=== PATIENT | male | born 1970 | race Caucasian/White ===

== ENCOUNTER → 2017-11-17 16:16 | Outpatient (CLI) | payer OTHER, SELFPAY ==
--- NOTE | 2017-11-17 08:20 | LES_PTH ---
PATIENT: BOBY CHANDLER LOC: [facility] U#:[id number] AGE/SX: 55/M ROOM: RE11/17/[address]: Dr. Ashu Napoles MD : 1970 BED: DIS: SPEC #: [id number] RECD: 11/17/17 16:07 STATUS: REBCEA CHAZ #: [id number] ISAK: 11/17/17 08:[address]: Ashu Napoles DEPT: SURGICAL PATHOLOGY RECD BY: Nelson Loza ENTERED: 11/18/17 09:08 SP TYPE: Lesion OTHR DR: Dr. Carlos A Sawyer, DO Dr. Quin Hurst DO Tissues: Skin of scalp, NOS Procedures: Surgery Specimen Level IV HEADER OPERATION: Shave biopsy lesion right posterior occipital area PRE-OP DIAGNOSIS: Neoplasm of uncertain behavior of skin TISSUE SUBMITTED: Skin lesion scalp MICROSCOPIC DIAGNOSIS Skin lesion scalp, shave biopsy: Eccrine poroma. SJ:jeanine 11/27/17 COMMENT The case was sent to [facility] for expert opinion and reviewed by Dr. Alvarez and above diagnosis is rendered. Case has been reviewed in consultation with Dr. Hernandez who concurs with the above diagnosis. IDC:AM MICROSCOPIC DESCRIPTION Slides are reviewed. GROSS DESCRIPTION Received in fixative is one container labeled with the patient's name and designated scalp skin lesion shave biopsy. The specimen consists of a polypoid piece of fernandez-white skin measuring 1.7 x 1 x 1 cm. The specimen is inked, serially sectioned and submitted entirely in one cassette. / KEARA:jeanine 11/18/17 TC:1 CPT: 93833
== END ==
PROVIDERS: Family Provider Family Medicine; PCP Family Medicine; Visit Provider Surgery
DX: D48.5 Neoplasm of uncertain behavior of skin (principal)
CPT/HCPCS: 88305

== ENCOUNTER 2017-12-09 13:06 | Outpatient (RCR) | payer OTHER, SELFPAY | END 2017-12-19 23:59 | LOC: NS 13:06 | PROVIDERS: Family Provider Family Medicine; PCP Family Medicine; Visit Provider Physician Assistant | DX: E66.9 Obesity, unspecified (principal); Z68.44 Body mass index [BMI] 60.0-69.9, adult; Z71.3 Dietary counseling and surveillance | CPT/HCPCS: 97802 ==

== ENCOUNTER 2018-01-19 08:30 | Outpatient (RCR) | payer OTHER, SELFPAY | END 2018-01-19 23:59 | LOC: NS 08:30 | PROVIDERS: Family Provider Family Medicine; PCP Family Medicine; Visit Provider Physician Assistant | DX: E66.9 Obesity, unspecified (principal); Z68.44 Body mass index [BMI] 60.0-69.9, adult; Z71.3 Dietary counseling and surveillance | CPT/HCPCS: 97803 ==

== ENCOUNTER → 2019-06-28 10:26 | Outpatient (CLI) | payer BC, SELFPAY | PROVIDERS: Referring Provider Student in an Organized Health Care Education/Training Program; Visit Provider Student in an Organized Health Care Education/Training Program | DX: I10 Essential (primary) hypertension (principal); R00.0 Tachycardia, unspecified; E66.01 Morbid (severe) obesity due to excess calories; Z68.44 Body mass index [BMI] 60.0-69.9, adult | CPT/HCPCS: J7040; Q9957; A4216 ==

== ENCOUNTER → 2019-07-18 08:44 | Outpatient (CLI) | payer BC, SELFPAY ==
[2019-07-14 13:48] VITALS: BMI 72.5
== END ==
PROVIDERS: Referring Provider Internal Medicine Cardiovascular Disease; Visit Provider Internal Medicine Cardiovascular Disease
DX: R00.0 Tachycardia, unspecified (principal)
CPT/HCPCS: 93225; 93226

== ENCOUNTER 2023-01-06 13:28 | Outpatient (RCR) | payer OTHER, SELFPAY ==
[2023-01-06 13:43] VITALS: BP 135/81; PULSE 111; RESP 22; TEMP 36.1; BMI 69.5
--- NOTE | 2023-01-06 14:59 | HP.PCM_ITS ---
History of Present Illness Date of Service: 01/06/23 Chief Complaint: Severe swelling and edema in the lower extremities History of Wound: This is a morbidly obese 52-year-old male who presents with a longstanding history of swelling and edema in his lower extremities. The patient weighs 485 pounds, with a BMI of 69.5. Bariatric surgery has been recommended in the past, but has been denied twice by his insurance company. He has recently lost approximately 100 pounds due to illness which adversely affected his appetite. The patient has multiple pre-existing medical problems, including a recent diagnosis of diabetes mellitus. He has recently started Ozempic. He has a long history of swelling and edema in his lower extremities. His swelling and edema typically is worse at the end of the day. He sleeps on a flat mattress at night. He is not very active. Activity is limited by osteoart hritis in his left knee, which prevents liberal ambulation. He has been advised to undergo left total knee replacement surgery. As result, the patient sits a great deal of each day. 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 He was hospitalized twice in November due to cellulitis in his right leg. He also had an abscess in his right groin, which was surgically drained. While hospitalized at [facility] in November, he was treated with intravenous antibiotics for lower extremity cellulitis. Shortly after discharge, he was hospitalized at [facility] for treatment of dehydration. He denies a history of thrombophlebitis. Venous duplex examination was performed at [facility] approximately 2 weeks ago, which was negative for thrombophlebitis. Until recently, there were blisters and wounds on the patient's legs, but they have since healed, and are nonexistent at the current time He has recently been treated with an oral course of Keflex. The patient owns Velcro compression garments, but has been unable to wear due to sensitivities which have developed in his lower extremities. [facility] Medical History Chronic venous insufficiency CKD (chronic kidney disease) stage 2, GFR 60-89 ml/min COVID-19 Diabetes mellitus Dysmetabolic syndrome X Elevated liver enzymes Essential hypertension GERD (gastroesophageal reflux disease) Hiatal hernia History of migraine headaches Hyperlipidemia Hypertension Immobility Insulin resistance Left leg swelling Leg edema, left Leg edema, right Morbid (severe) obesity due to excess calories Osteoarthritis of knee Right leg swelling Scalp lesion Sinus tachycardia Home Medications multivitamin 1 tab PO QAM 11/12/17 [History Last Taken Unknown] aspirin 81 mg tablet,delayed release (Adult Low Dose Aspirin) 81 mg PO DAILY #90 tabs 05/01/21 [Rx Last Taken Unknown] omeprazole 20 mg capsule,delayed release 20 mg PO QDAY 05/01/21 [History Last Taken Unknown] amlodipine 5 mg tablet 5 mg PO DAILY #90 tabs 03/17/22 [Rx Last Taken Unknown] diphenhydramine 25 mg-acetaminophen 500 mg tablet (Tylenol PM Extra Strength) 2 tab PO QHS PRN sleep 05/19/22 [History Last Taken Unknown] ibuprofen 200 mg tablet 200 mg PO DAILY PRN pain 05/19/22 [History Last Taken Unknown] lisinopril 5 mg tablet 20 mg PO QDAY 01/06/23 [History Last Taken Unknown] semaglutide 0.25 mg or 0.5 mg (2 mg/3 mL) subcutaneous pen injector (Ozempic) 0.25 mg subcut QWEEK 01/06/23 [History Last Taken Unknown] Allergy/AdvReac Type Severity Reaction Status Date / Time Sulfa (Sulfonamide Allergy Mild Anaphylaxis Verified 01/06/23 14:31 Antibiotics) adhesive tape Allergy Unknown Rash Verified 01/06/23 14:31 Family History Brother Diabetes Asthma Mother CAD (coronary artery disease) Father CVA (cerebral vascular accident) CHF (congestive heart failure) Surgical History History of arthroscopy of both knees History of arthroscopy of left knee History of arthroscopy of right knee History of arthroscopy of shoulder History of repair of left rotator cuff History of total right knee replacement right hip bone graft Status post osteotomy Status post right knee replacement Social History Smoking Status: Never smoker alcohol intake: never substance use type: does not use caffeine: Yes Type: carbonated beverages Number of servings: 10 Vital Signs Vital Signs Vital Signs: 01/06/23 13:43 Temperature 97.0 F L Temperature Source Temporal Pulse Rate 111 H Respiratory Rate 22 H Blood Pressure 135/81 H Blood Pressure Mean 99 Blood Pressure Source Monitor Blood Pressure Position Sitting Blood Pressure Location Left Arm Oxygen Delivery Method Room Air Weight Weight: 485 lb Body Mass Index (BMI) 69.5 Physical Exam Const alert, oriented x3, no apparent distress and well nourished Constitutional Narrative: The patient is morbidly obese. He weighs 485 pounds, and his BMI is 69.5. General Appearance: cooperative, comfortable, well kempt and well developed Orientation / Consciousness: awake, oriented to person, oriented to place and oriented to time Exam Limitations: no limitations HEENT normocephalic and head/scalp atraumatic Head and Scalp: normal to inspection, normocephalic and atraumatic External Ear: external ears normal Eyes PERRL and EOMs intact bilaterally General Eye: normal appearance of both eyes Resp normal respiratory effort, normal air movement, no retractions and no use of accessory muscles Effort and Inspection: able to speak in complete sentences Extremity no calf tenderness General Extremity: Negative for clubbing or cyanosis Skin Wound Narrative: Severe swelling and edema are noted in the patient's lower extremities bilaterally. There are no open wounds or ulcerations. There are no significant skin changes. There is no evidence of infection or cellulitis. Neuro oriented x3, CN's II-XII intact bilaterally, moves all extremities and no focal motor deficits Sensorium / Orientation: awake, alert, oriented to person, oriented to place and oriented to time Psych Appearance: grossly normal and appropriate Attitude: calm Activity / Motor Behavior: appropriate eye contact Speech: normal speech Mood & Affect: euthymic mood Thought Process: normal thought process Thought Content: normal thought content Attention / Concentration: attention grossly intact Debridement Note Debridement Note No debridement was completed: No debridement was completed today (There are no open wounds or ulcerations.) Post-Debridement Measurements and Additional Note: Post-Debridement Measurements/Treatment WC - Nurse 1 - General Ulcer Assessment Start: 01/06/23 13:43 Freq: Status: Active Protocol: LISA.DEQUAN Activity Type Activity Date Activity User E-sign Co-sign Detail Recorded Client Recorded Date Recorded By Document 01/06/23 13:43 MW [id number] 01/06/23 14:05 MW 01/06/23 13:43 WC - Today's Visit Information Type of service Initial Visit Arrival Mode Wheelchair Transfer Assistance None Accompanied by Patient Identification Verified (Name & Yes ) Patient Requires Transmission-Based No Precautions Safety Precautions Fall Prevention Finger Stick Blood Sugar(mg/dl) (if 136 indicated): Blood Sugar Stated by Patient Height and Weight Height 5 ft 10 in Weight 485 lb Weight in Pounds 485.0 lbs Weight Measurement Method Stated by Patient Body Mass Index (BMI) 69.5 BMI Classification Obese BSA - Rosemary 3.04 Vital Signs Temperature (97.8 F-99.1 F) 97.0 F L Temperature Source Temporal Pulse Rate (60-100) 111 H Pulse Location Monitor Respiratory Rate (12-18) 22 H Respiratory rate source Observation Oxygen Delivery Method Room Air Blood Pressure (90/60-120/80) 135/81 H Blood Pressure Mean 99 Source Monitor Position Sitting Blood Pressure Location Left Arm History Since Last Visit- (Skip if this is Patient's initial visit) Left Footwear Regular Shoe Right Footwear Regular Shoe Pain Scale: 0-10 Numeric Is Patient Pain Free? Yes Lower Extremity Assessment/ Foot Assessment/ Toe Nail Assessment Right -Posterior Tibial Palpable No -Posterior Tibial Doppler Multiphasic -Dorsalis Pedis Palpable Yes -Dorsalis Pedis Doppler Multiphasic -Extremity Color Hemosiderin -Hair Growth on Legs No -Hair Growth on Toes No -Temperature of Extremity Warm -Capillary Refill Less than 3 Seconds -Dependent Rubor No -Blanched when Elevated No -Lipodermatosclerosis No -Other Deformity No -Prior Foot Ulcer No -Charcot Joint No -Prior Amputation No -Thick No -Discolored No -Deformed No -Improper Length & Hygeine No Left -Posterior Tibial Palpable No -Posterior Tibial Doppler Multiphasic -Dorsalis Pedis Palpable Yes -Dorsalis Pedis Doppler Multiphasic -Extremity Color Hemosiderin -Hair Growth on Legs No -Hair Growth on Toes No -Temperature of Extremity Warm -Capillary Refill Less than 3 Seconds -Dependent Rubor No -Blanched when Elevated No -Lipodermatosclerosis No -Other Deformity No -Prior Foot Ulcer No -Charcot Joint No -Prior Amputation No -Thick No -Discolored No -Deformed No -Improper Length & Hygeine No Neuropathy Assessment Feet - Top Side and Bottom <Entered> (a) Communication Assessment Preferred language [place] Citizen Director Of [employer] Required No Able to Read Yes Able to Write Yes Communication Tools None Caregiver Communication Skills No Impairment Impairment Right Hearing Abillity Normal Left Hearing Abillity Normal Visual Assistive Devices Glasses Teaching Assessment Preferences Verbal,Written, Audio/Visual, Demonstration Barriers to Learning None Readiness To Learn Excellent Willingness to Engage in Self Management High Activies Readiness to Engage in Self Management High Activities Anxiety Level Calm Cooperation Cooperative Perception Coherent Interest in Health Problem Asks Questions Education Importance Acknowledges Need Does Patient Smoke tobacco or other Yes substances Is Patient Diabetic Yes Functional Assessment Recent Decline in Ability to Perform Denies Any Declines Assistive Device With Patient Yes List Device(s) with Patient wheelchair Culture/Congregation/Lift Supervisor Cultural/Congregation Needs that may affect No Treatment Plan Would you allow our hospital abrasive mixer helper to No meet you for the purpose of spiritual/ emotional support? Lift Supervisor to contact place of muslim No Teaching: Wound Center *Welcome to the Wound Center -Person Taught Patient,Family -Teaching Method Discussion -Response to teaching Verbalize understanding (a) 1 - + WC - Nurse 1 - General Ulcer Measurement Start: 01/06/23 13:43 Freq: Status: Active Protocol: Activity Type Activity Date Activity User E-sign Co-sign Detail Recorded Client Recorded Date Recorded By Document 01/06/23 13:43 MW [id number] 01/06/23 14:05 MW 01/06/23 13:43 Wound Center Nurse 1 Lower Limb Edema Present Yes Right Calf (cm) 57.5 Right Ankle (cm) 33.0 Left Calf (cm) 50.5 Left Ankle (cm) 31.0 Assessment/Plan Assessment/Plan (1) Left leg swelling: CODE(S): M79.89 - Other specified soft tissue disorders (2) Right leg swelling: CODE(S): M79.89 - Other specified soft tissue disorders (3) Leg edema, left: CODE(S): R60.0 - Localized edema (4) Leg edema, right: CODE(S): R60.0 - Localized edema (5) Morbid (severe) obesity due to excess calories: CODE(S): E66.01 - Morbid (severe) obesity due to excess calories (6) Dyspnea on exertion: CODE(S): R06.09 - Other forms of dyspnea (7) Essential hypertension: CODE(S): I10 - Essential (primary) hypertension (8) Dysmetabolic syndrome X: CODE(S): E88.81 - Metabolic syndrome (9) CKD (chronic kidney disease) stage 2, GFR 60-89 ml/min: CODE(S): N18.2 - Chronic kidney disease, stage 2 (mild) (10) Hypertension: CODE(S): I10 - Essential (primary) hypertension (11) Diabetes mellitus: CODE(S): E11.9 - Type 2 diabetes mellitus without complications (12) Hyperlipidemia: CODE(S): E78.5 - Hyperlipidemia, unspecified (13) Chronic venous insufficiency: CODE(S): I87.2 - Venous insufficiency (chronic) (peripheral) (14) History of migraine headaches: CODE(S): Z86.69 - Personal history of other diseases of the nervous system and sense organs (15) Osteoarthritis of knee: CODE(S): M17.9 - Osteoarthritis of knee, unspecified (16) Immobility: CODE(S): Z74.09 - Other reduced mobility (17) History of repair of left rotator cuff: CODE(S): Z98.890 - Other specified postprocedural states (18) History of arthroscopy of both knees: CODE(S): Z98.890 - Other specified postprocedural states (19) History of total right knee replacement: CODE(S): Z96.651 - Presence of right artificial knee joint PLAN: Plan This is a morbidly obese 52-year-old male who presents with swelling and edema in his lower extremities bilaterally, which has been chronic in nature. Recently, the patient has been treated for cellulitis in his right lower extremity. This required hospitalization and the administration of intravenous antibiotics. More recently, he has been treated with oral Keflex. At the time of his intake evaluation, there are no open wounds or ulcerations in his lower extremities. There is no evidence of cellulitis or significant skin changes. A lengthy discussion has been undertaken with the patient and his as to the appropriate measures relative to the management and prevention of lower extremity swelling and edema. The patient is to continue sleeping on a flat mattress at night. He is to elevate his lower extremities, even during daytime hours. Elevation is to be to heart level, or higher as much as possible. Prolonged idle sitting has been discouraged. Activity has been encouraged. However, severe osteoarthritis in the patient's left knee limits his ambulatory capacity, so significant enhancement of his activity level is unlikely. Weight loss has been recommended. He is collaborating with his primary care physician and other physicians regarding weight loss measures. He has recently started on Ozempic. Bariatric surgery has been discussed and considered, though it is learned that this has been an attempted in the past, but declined by his insurance company. The patient has found it difficult to implement compression to his lower extremities, due to recent onset of tenderness and discomfort. It is noted that the patient is on a statin, atorvastatin, which may be contributing to this intolerance. Patient has been encouraged to discuss the symptoms with his primary care physician, as statins have been known to cause muscle pain and discomfort such as described by the patient. Compression is to be implemented by means of Tubigrip's of 20 to 30 mmHg compression. These are to be applied daily by the patient and his . They are to be donned upon arising each morning, and doffed at bedtime. The patient claims to have [employer] Velcro compression garments at home, and has been encouraged to bring these with him at his next visit, so that staff can determine whether these are in good condition and suitable for use. Ultimately, the patient may benefit from pneumatic mechanical compression pumps. Such pumps will be considered as the patient's clinical course evolves. The patient is return in 2 weeks for reevaluation. In the interim, conservative treatment measures are to be, including leg elevation, avoidance of idle sitting, activity as tolerated, daily compression, and efforts at weight loss. Total time: 50 minutes
== END 2023-01-19 23:59 | disposition home or self-care (01) ==
LOC: WC 13:28
PROVIDERS: Visit Provider Surgery
DX: M79.89 Other specified soft tissue disorders (principal); E11.22 Type 2 diabetes mellitus with diabetic chronic kidney disease; E66.01 Morbid (severe) obesity due to excess calories; Z68.44 Body mass index [BMI] 60.0-69.9, adult; R60.0 Localized edema; E88.81 Metabolic syndrome and other insulin resistance; M17.12 Unilateral primary osteoarthritis, left knee; R06.09 Other forms of dyspnea; I12.9 Hypertensive chronic kidney disease with stage 1 through stage 4 chronic kidney disease, or unspecified chronic kidney disease; N18.2 Chronic kidney disease, stage 2 (mild); I87.2 Venous insufficiency (chronic) (peripheral); Z74.09 Other reduced mobility; E78.5 Hyperlipidemia, unspecified; Z79.1 Long term (current) use of non-steroidal anti-inflammatories (NSAID); Z79.82 Long term (current) use of aspirin; Z79.899 Other long term (current) drug therapy
CPT/HCPCS: 99213; G0463

== ENCOUNTER 2023-01-20 09:47 | Outpatient (RCR) | payer OTHER, SELFPAY ==
[2023-01-20 00:24] VITALS: BP 135/81; PULSE 111; RESP 22; TEMP 36.1; BMI 69.5
[2023-01-20 09:53] VITALS: BP 133/94; PULSE 96; RESP 18; TEMP 35.9; BMI 69.5
--- NOTE | 2023-01-20 13:13 | HP.PCM_ITS ---
History of Present Illness Date of Service: 01/20/23 Chief Complaint: Severe swelling and edema in the lower extremities History of Wound: This is a morbidly obese 52-year-old male who presented with a longstanding history of swelling and edema in his lower extremities. The patient weighs 485 pounds, with a BMI of 69.5. Bariatric surgery has been recommended in the past, but has been denied twice by his insurance company. He has recently lost approximately 100 pounds due to illness which adversely affected his appetite. The patient has multiple pre-existing medical problems, including a recent diagnosis of diabetes mellitus. He has recently started Ozempic. He has a long history of swelling and edema in his lower extremities. His swelling and edema typically is worse at the end of the day. He sleeps on a flat mattress at night. He is not very active. Activity is limited by osteoar thritis in his left knee, which prevents liberal ambulation. He has been advised to undergo left total knee replacement surgery. As result, the patient sits a great deal of each day. 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 He was hospitalized twice in November due to cellulitis in his right leg. He also had an abscess in his right groin, which was surgically drained. While hospitalized at [facility] in November, he was treated with intravenous antibiotics for lower extremity cellulitis. Shortly after discharge, he was hospitalized at [facility] for treatment of dehydration. He denies a history of thrombophlebitis. Venous duplex examination was performed at [facility] approximately 2 weeks ago, which was negative for thrombophlebitis. Until recently, there were blisters and wounds on the patient's legs, but they have since healed, and are nonexistent at the current time He has recently been treated with an oral course of Keflex. The patient owns Velcro compression garments, but has been unable to wear due to sensitivities which have developed in his lower extremities. [facility] Medical History Chronic venous insufficiency CKD (chronic kidney disease) stage 2, GFR 60-89 ml/min COVID-19 Diabetes mellitus Dysmetabolic syndrome X Elevated liver enzymes Essential hypertension GERD (gastroesophageal reflux disease) Hiatal hernia History of migraine headaches Hyperlipidemia Hypertension Immobility Insulin resistance Left leg swelling Leg edema, left Leg edema, right Morbid (severe) obesity due to excess calories Osteoarthritis of knee Right leg swelling Scalp lesion Sinus tachycardia Home Medications multivitamin 1 tab PO QAM 11/12/17 [History Last Taken Unknown] aspirin 81 mg tablet,delayed release (Adult Low Dose Aspirin) 81 mg PO DAILY #90 tabs 05/01/21 [Rx Last Taken Unknown] omeprazole 20 mg capsule,delayed release 20 mg PO QDAY 05/01/21 [History Last Taken Unknown] amlodipine 5 mg tablet 5 mg PO DAILY #90 tabs 03/17/22 [Rx Last Taken Unknown] diphenhydramine 25 mg-acetaminophen 500 mg tablet (Tylenol PM Extra Strength) 2 tab PO QHS PRN sleep 05/19/22 [History Last Taken Unknown] ibuprofen 200 mg tablet 200 mg PO DAILY PRN pain 05/19/22 [History Last Taken Unknown] lisinopril 5 mg tablet 20 mg PO QDAY 01/06/23 [History Last Taken Unknown] semaglutide 0.25 mg or 0.5 mg (2 mg/3 mL) subcutaneous pen injector (Ozempic) 0.25 mg subcut QWEEK 01/06/23 [History Last Taken Unknown] Allergy/AdvReac Type Severity Reaction Status Date / Time Sulfa (Sulfonamide Allergy Mild Anaphylaxis Verified 01/06/23 14:31 Antibiotics) adhesive tape Allergy Unknown Rash Verified 01/06/23 14:31 Family History Brother Diabetes Asthma Mother CAD (coronary artery disease) Father CVA (cerebral vascular accident) CHF (congestive heart failure) Surgical History History of arthroscopy of both knees History of arthroscopy of left knee History of arthroscopy of right knee History of arthroscopy of shoulder History of repair of left rotator cuff History of total right knee replacement right hip bone graft Status post osteotomy Status post right knee replacement Social History Smoking Status: Never smoker alcohol intake: never substance use type: does not use caffeine: Yes Type: carbonated beverages Number of servings: 10 Vital Signs Vital Signs Vital Signs: 01/20/23 09:53 01/20/23 00:24 Temperature 96.7 F L 97.0 F L Temperature Source Temporal Pulse Rate 96 111 H Respiratory Rate 18 22 H Blood Pressure 133/94 H 135/81 H Blood Pressure Mean 107 99 Blood Pressure Source Monitor Blood Pressure Position Semi-Fowlers Blood Pressure Location Left Arm Left Arm Oxygen Delivery Method Room Air Weight Weight: 485 lb Body Mass Index (BMI) 69.5 Physical Exam Const alert, oriented x3, no apparent distress and well nourished Constitutional Narrative: The patient is morbidly obese. He weighs 485 pounds, and his BMI is 69.5. General Appearance: cooperative, comfortable, well kempt and well developed Orientation / Consciousness: awake, oriented to person, oriented to place and oriented to time Exam Limitations: no limitations HEENT normocephalic and head/scalp atraumatic Head and Scalp: normal to inspection, normocephalic and atraumatic External Ear: external ears normal Eyes PERRL and EOMs intact bilaterally General Eye: normal appearance of both eyes Resp normal respiratory effort, normal air movement, no retractions and no use of accessory muscles Effort and Inspection: able to speak in complete sentences Extremity no calf tenderness General Extremity: Negative for clubbing or cyanosis Skin Wound Narrative: The swelling and edema in the patient's lower extremities is much improved, and now nearly eliminated. There are no open wounds or ulcerations. There is no evidence of infection or cellulitis. Lipodermatosclerosis is noted in the right gaiter area. Neuro oriented x3, CN's II-XII intact bilaterally, moves all extremities and no focal motor deficits Sensorium / Orientation: awake, alert, oriented to person, oriented to place and oriented to time Psych Appearance: grossly normal and appropriate Attitude: calm Activity / Motor Behavior: appropriate eye contact Speech: normal speech Mood & Affect: euthymic mood Thought Process: normal thought process Thought Content: normal thought content Attention / Concentration: attention grossly intact Debridement Note Debridement Note No debridement was completed: No debridement was completed today Post-Debridement Measurements and Additional Note: Post-Debridement Measurements/Treatment LISA - Nurse 1 - General Ulcer Assessment Start: 01/20/23 09:53 Freq: Status: Active Protocol: AYANA Activity Type Activity Date Activity User E-sign Co-sign Detail Recorded Client Recorded Date Recorded By Document 01/20/23 09:53 KW [id number] 01/20/23 10:12 01/20/23 09:53 WC - Today's Visit Information Type of service 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 ) Arrival Mode Ambulatory Accompanied by Finger Stick Blood Sugar(mg/dl) (if 114 indicated): Blood Sugar Stated by Patient Height and Weight Body Mass Index (BMI) 69.5 BMI Classification Obese Vital Signs Temperature (97.8 F-99.1 F) 96.7 F L Temperature Source Temporal Pulse Rate (60-100) 96 Pulse Location Monitor Respiratory Rate (12-18) 18 Respiratory rate source Observation Oxygen Delivery Method Room Air Blood Pressure (90/60-120/80) 133/94 H Blood Pressure Mean 107 Source Monitor Position Semi-Fowlers Blood Pressure Location Left Arm History Since Last Visit- (Skip if this is Patient's initial visit) Have you changed medications since your Yes last visit? Any new allergies or adverse reactions No Had a fall/change in ADL's that may No increase risk of falls Signs or symptoms of abuse and/or No neglect since last visit Have you been in the hospital since your No last visit? Has dressing in place as prescribed Yes Has compression in place as prescribed Yes Has offloadiing in place as prescribed No Experienced any changes in pain level or No management Left Footwear Regular Shoe Right Footwear Regular Shoe Pain Scale: 0-10 Numeric Is Patient Pain Free? Yes - Nurse 1 - General Ulcer Measurement Start: 01/20/23 09:53 Freq: Status: Active Protocol: Activity Type Activity Date Activity User E-sign Co-sign Detail Recorded Client Recorded Date Recorded By Document 01/20/23 09:53 BELLA [id number] 01/20/23 10:12 01/20/23 09:53 Wound Center Nurse 1 Right Calf (cm) 54.5 Right Ankle (cm) 29.5 Left Calf (cm) 48.0 Left Ankle (cm) 28.5 - Nurse 3 - General Ulcer D/C NN Start: 01/20/23 09:53 Freq: Status: Active Protocol: Activity Type Activity Date Activity User E-sign Co-sign Detail Recorded Client Recorded Date Recorded By Document 01/20/23 10:55 KW [id number] 01/20/23 10:56 01/20/23 10:55 Wound Care Center Nurse 3 BLE -Tubular Bandage Single Layer -Size of Tubigrip Used Size F -Size E ($) 1 -Size F ($) 1 Pain Scale: 0-10 Numeric Is Patient Pain Free? Yes WC - Visit Discharge Discharge Condition Stable Ambulatory Status Wheelchair Transportation Private Auto Medication Reconcilliation completed & No provided to patient/care provider Clinical Summary of Care Provided Yes Assessment/Plan Assessment/Plan (1) Left leg swelling: CODE(S): M79.89 - Other specified soft tissue disorders (2) Right leg swelling: CODE(S): M79.89 - Other specified soft tissue disorders (3) Leg edema, left: CODE(S): R60.0 - Localized edema (4) Leg edema, right: CODE(S): R60.0 - Localized edema (5) Morbid (severe) obesity due to excess calories: CODE(S): E66.01 - Morbid (severe) obesity due to excess calories (6) Dyspnea on exertion: CODE(S): R06.09 - Other forms of dyspnea (7) Essential hypertension: CODE(S): I10 - Essential (primary) hypertension (8) Dysmetabolic syndrome X: CODE(S): E88.81 - Metabolic syndrome (9) CKD (chronic kidney disease) stage 2, GFR 60-89 ml/min: CODE(S): N18.2 - Chronic kidney disease, stage 2 (mild) (10) Hypertension: CODE(S): I10 - Essential (primary) hypertension (11) Diabetes mellitus: CODE(S): E11.9 - Type 2 diabetes mellitus without complications (12) Hyperlipidemia: CODE(S): E78.5 - Hyperlipidemia, unspecified (13) Chronic venous insufficiency: CODE(S): I87.2 - Venous insufficiency (chronic) (peripheral) (14) History of migraine headaches: CODE(S): Z86.69 - Personal history of other diseases of the nervous system and sense organs (15) Osteoarthritis of knee: CODE(S): M17.9 - Osteoarthritis of knee, unspecified (16) Immobility: CODE(S): Z74.09 - Other reduced mobility (17) History of repair of left rotator cuff: CODE(S): Z98.890 - Other specified postprocedural states (18) History of arthroscopy of both knees: CODE(S): Z98.890 - Other specified postprocedural states (19) History of total right knee replacement: CODE(S): Z96.651 - Presence of right artificial knee joint PLAN: Plan This is a morbidly obese 52-year-old male who presented with swelling and edema in his lower extremities bilaterally, which has been chronic in nature. Recently, the patient has been treated for cellulitis in his right lower extremity. This required hospitalization and the administration of intravenous antibiotics. More recently, he has been treated with oral Keflex. At the time of his intake evaluation, there were no open wounds or ulcerations in his lower extremities. There was no evidence of cellulitis. A lengthy discussion has been undertaken with the patient and his as to the appropriate measures relative to the management and prevention of lower extremity swelling and edema. The patient is to continue sleeping on a flat mattress at night. He is to elevate his lower extremities, even during daytime hours. Elevation is to be to heart level, or higher as much as possible. Prolonged idle sitting has been discouraged. Activity has been encouraged. However, severe osteoarthritis in the patient's left knee limits his ambulatory capacity, so significant enhancement of his activity level is unlikely. Weight loss has been recommended. He is collaborating with his primary care physician and other physicians regarding weight loss measures. He has recently started on Ozempic. Bariatric surgery has been discussed and considered, though it is learned that this has been an attempted in the past, but declined by his insurance company. The patient has found it difficult to implement compression to his lower extremities, due to recent onset of tenderness and discomfort. It is noted that the patient is on a statin, atorvastatin, which may be contributing to this intolerance. Since the patient's initial visit, he has collaborated with his primary care physician, and is now no longer taking his statin medication. As result, in short order, the patient has experienced significant decrease in the pain and discomfort in his lower extremities, as well as minimization of his swelling. He attributes this improvement to the discontinuation of yadi rvastatin. The patient has brought his Velcro compression garments with him today, and they are seen to be in good condition and of the appropriate size. Therefore, the patient is to continue using these compression garments on a daily basis, donning each morning and doffing at bedtime. Because of a lack of open wounds or ulcerations, the patient is to be discharged at this time, and will follow-up henceforth on an as-needed basis. Ultimately, the patient may benefit from pneumatic mechanical compression pumps. Such pumps will be considered if the patient fails to derive benefit from the measures currently employed. The patient is to continue current conservative treatment measures, including leg elevation, avoidance of idle sitting, activity as tolerated, daily compression, and efforts at weight loss. Total time: 25 minutes
== END 2023-01-21 15:09 | disposition home or self-care (01) ==
LOC: WC 09:47
PROVIDERS: Visit Provider Surgery
DX: M79.89 Other specified soft tissue disorders (principal); E11.22 Type 2 diabetes mellitus with diabetic chronic kidney disease; E66.01 Morbid (severe) obesity due to excess calories; Z68.44 Body mass index [BMI] 60.0-69.9, adult; R60.0 Localized edema; I87.2 Venous insufficiency (chronic) (peripheral); I12.9 Hypertensive chronic kidney disease with stage 1 through stage 4 chronic kidney disease, or unspecified chronic kidney disease; N18.2 Chronic kidney disease, stage 2 (mild); E88.81 Metabolic syndrome and other insulin resistance; M17.12 Unilateral primary osteoarthritis, left knee; Z74.09 Other reduced mobility; Z79.1 Long term (current) use of non-steroidal anti-inflammatories (NSAID); E78.5 Hyperlipidemia, unspecified; Z79.82 Long term (current) use of aspirin; Z79.85 Long-term (current) use of injectable non-insulin antidiabetic drugs
CPT/HCPCS: 99213; G0463

== ENCOUNTER 2025-03-09 10:05 | Day surgery (SDC) | payer BC, SELFPAY ==
--- NOTE | 2025-03-07 15:43 | PAT.ANE_ITS ---
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 When Was Last Pacemaker Check QUESTION #4 FULL TEXT: You/Your Family Experience fever (hyperthermia) with Anesthesia Last Oral Intake Last Oral intake: Last Oral Intake NPO since Meds taken in AM with sips of water? Meds patient instructed to take am of surgery PONV PONV - tool and die designer: PONV - tool and die designer Female No 03/07/25 08:31 HX of Motion Sickness No 03/07/25 08:31 HX of N/V After Surgery No 03/07/25 08:31 Non-Smoker Yes 03/07/25 08:31 Duration of Surgery greater No 03/07/25 08:31 than 60 minutes Number of Risk Factors 1 03/07/25 08:31 PONV Score Low Risk 03/07/25 08:31 Height & Weight Height & Weight: Anesthesia: Height & Weight Height 5 ft 10 in 01/06/23 13:43 Respiratory Assessment Respiratory Assessment - tool and die designer: Respiratory Tract Infection Hx - tool and die designer Hx Respiratory Tract Infection No 03/07/25 08:31 STOP Sleep Apnea STOP Sleep Apnea - tool and die designer: STOP Sleep Apnea - tool and die designer Hx Hypertension Yes: CONTROLLED ON MED 03/07/25 08:31 Hx Sleep Apnea No 03/07/25 08:31 CPAP BIPAP Do you snore loudly (louder No 03/07/25 08:31 than talking or can be heard Do you often feel tired/ No 03/07/25 08:31 fatigued/ sleepy during daytime? Has anyone observed you stop No 03/07/25 08:31 breathing during sleep? STOP Results Negative 03/07/25 08:31 QUESTION #5 FULL TEXT : Do you snore loudly (louder than talking or can be heard through closed doors)? Tobacco Use History Tobacco Use History - tool and die designer: Tobacco Use History - tool and die designer Tobacco Use Smoking Status Former smoker 03/07/25 08:31 Hx Tobacco Use No 03/07/25 08:31 Years Smoking Packs Smoked per Day Smoking Cessation Date was No - quit smoking greater 03/07/25 08:31 within the last 15 years than 15 years ago Hx Smoking Cessation Date Hx Smoking Cessation Counseling Hematologic Medial History Hematologic Hx - tool and die designer: Hematologic Medical Hx - brim flexer Hx of Blood Transfusion No 03/07/25 08:31 Hx of Transfusion in last 3 No 03/07/25 08:31 Months Date of Last Transfusion (if within last 3 months) Ever experience any problems No 03/07/25 08:31 with transfusion(s)? Specify any problems Hx of Preganancy in last 3 N/A 03/07/25 08:31 Months Nurse Filling Out Transfusion [id number] 03/07/25 08:31 & Questions: Date: 03/07/25 03/07/25 08:31 Time: 08:35 03/07/25 08:31 Patient unable to answer at this time (ie. confused, unrespo /Reproduction History /Reproductive History - tool and die designer: /Reproductive Hx- tool and die designer Hx Now Gestational Age (in weeks): EDC: Hx Hx Para Hx Section SAB PFSH Medical History (Updated 03/07/25 @ 08:40 by Iker Wilburn) Shoulder dislocation Depression Anxiety Arthritis Migraine headache Difficulty swallowing Difficulty chewing Gastric reflux Former smoker Shortness of breath on exertion Leg cramps History of edema History of pain when walking Cardiology follow-up encounter History of irregular heartbeat History of Holter monitoring Hx of drainage of abscess Leg edema, right Leg edema, left Right leg swelling Left leg swelling Immobility Osteoarthritis of knee History of migraine headaches Chronic venous insufficiency Hyperlipidemia Diabetes mellitus Hypertension Morbid (severe) obesity due to excess calories COVID-19 Insulin resistance Essential hypertension Hiatal hernia Dysmetabolic syndrome X Elevated liver enzymes GERD (gastroesophageal reflux disease) CKD (chronic kidney disease) stage 2, GFR 60-89 ml/min Sinus tachycardia Scalp lesion Home Medications ?Medication ?Instructions ?Recorded ?Last Taken ?Type multivitamin 2 tab PO QAM 11/12/17 Unknow n History aspirin 81 mg tablet,delayed 81 mg PO DAILY #90 tabs 1 07/01/20 03/03/25 Rx release (Adult Low Dose Aspirin) omeprazole 20 mg capsule,delayed 20 mg PO QDAY 1 Unknown History release allopurinol 100 mg tablet 100 mg PO BID 10/26/24 Unkno wn History furosemide 20 mg tablet 20 mg PO QDAY 10/26/24 Unkno wn History magnesium oxide 500 mg capsule 500 mg PO QDAY 10/26/24 Unknown History semaglutide 0.25 mg or 0.5 mg (2 2 mg subcut QWEEK 01/1302/23/25 History mg/3 mL) subcutaneous pen injector (Ozempic) cholecalciferol (vitamin D3) 50 50 mcg PO DAILY Unknown History mcg (2,000 unit) capsule (Vitamin D3) potassium chloride 20 mEq 20 meq PO DAILY 12/27/24 Unk nown History tablet,extended release lisinopril 40 mg tablet 40 mg PO DAILY 03/07/25 Unkn own History Allergy/AdvReac Type Severity Reaction Status Date / Time Sulfa (Sulfonamide Allergy Mild Anaphylaxis Verified 03/07/25 08:27 Antibiotics) adhesive tape Allergy Unknown Rash Verified 03/07/25 08:27 atorvastatin (From Lipitor) AdvReac Severe Swelling Verified 03/07/25 08:27 Family History Brother Diabetes Asthma Mother CAD (coronary artery disease) Father CVA (cerebral vascular accident) CHF (congestive heart failure) Surgical History Hx of total shoulder replacement History of total right knee replacement History of arthroscopy of right knee History of arthroscopy of left knee History of arthroscopy of shoulder right hip bone graft Status post osteotomy Status post right knee replacement Social History Smoking Status: Former smoker alcohol intake: never substance use type: does not use caffeine: Yes Type: carbonated beverages Number of servings: 10 Audit: Pertinent Findings Pertinent Findings EKG Perinent findings: December 04, 2022. Sinus tachycardia at 105 bpm. Nonspecific intraventricular conduction delay. Consider inferior infarct. Nonspecific T wave abnormality. Echo (EF%) pertinent findings: February 21, 2025. EF of 55 to 60%. No regional wall motion abnormalities. Aortic root is mildly dilated at 4.2 cm. There is no aortic stenosis. Consult pertinent findings: January 27, 2025. Dr. Torres cardiology. 1. 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 Old stress test was nondiagnostic. Patient denies any anginal symptoms. Check an echo to assess wall motion. Patient to increase physical activity. If patient has exertional chest pain, consider stress test. Continue aspirin. 2. Hypertension?suboptimal control. Increase lisinopril to 40 mg a day. 3. Preoperative cardiovascular exam-colonoscopy is a low risk procedure. Abnormal EKG may be related to obesity. No anginal symptoms. Proceed with colonoscopy. Patient is low to intermediate risk for perioperative cardiovascular events. Additional pertinent findings: Holter monitor. 07/18/2019. Base rhythm is nor mal sinus. Rare isolated PAC. One 5 beat run of PAC. One isolated PVC. No runs. One episode of shortness of breath and rapid heart rate in diary which corresponded to a sinus tachycardia of 126 bpm. Recommendation Anesthesia Recommendation Anesthesia recommendation: OPTIMIZED for anesthesia
[2025-03-09] VITALS (7 sets, daily range): BP systolic 106–134; BP diastolic 54–84; PULSE 81–105; RESP 16–20; TEMP 36–36.7; O2SAT 94–96; BMI 71.4
--- NOTE | 2025-03-09 10:11 | PCM.HP.STD ---
HPI - General General Date of Admission: 03/09/25 Date of Service: 03/09/25 Chief Complaint: screening colonoscopy and the evaluation of anemia HPI Narrative BOBY CHANDLER, is a 54 M who presents for a screening colonoscopy and the evaluation of anemia Pt here today to be scheduled for colonoscopy. He has a positive Cologuard test about 2 years ago but did not have colonoscopy. He has a BMI of 69 and did not know if he would be able have it done. He has PMHx of GERD and is on omeprazole 20 mg daily as has been for about 20 years. This controls his heartburn well. He has never had an EGD or colonoscopy. [facility] Medical History Shoulder dislocation Depression Anxiety Arthritis Migraine headache Difficulty swallowing Difficulty chewing Gastric reflux Former smoker Shortness of breath on exertion Leg cramps History of edema History of pain when walking Cardiology follow-up encounter History of irregular heartbeat History of Holter monitoring Hx of drainage of abscess Leg edema, right Leg edema, left Right leg swelling Left leg swelling Immobility Osteoarthritis of knee History of migraine headaches Chronic venous insufficiency Hyperlipidemia Diabetes mellitus Hypertension Morbid (severe) obesity due to excess calories COVID-19 Insulin resistance Essential hypertension Hiatal hernia Dysmetabolic syndrome X Elevated liver enzymes GERD (gastroesophageal reflux disease) CKD (chronic kidney disease) stage 2, GFR 60-89 ml/min Sinus tachycardia Scalp lesion Home Medications ?Medication ?Instructions ?Recorded ?Last Taken ?Type multivitamin 2 tab PO QAM 11/12/17 Unknown History aspirin 81 mg tablet,delayed 81 mg PO DAILY #90 tabs 05/01/21 03/03/25 Rx release (Adult Low Dose Aspirin) omeprazole 20 mg capsule,delayed 20 mg PO QDAY 05/01/21 Unknown History release allopurinol 100 mg tablet 100 mg PO BID 10/26/24 Unknown History furosemide 20 mg tablet 20 mg PO QDAY 10/26/24 Unknown History magnesium oxide 500 mg capsule 500 mg PO QDAY 10/26/24 Unknown History semaglutide 0.25 mg or 0.5 mg (2 2 mg subcut QWEEK 10/26/24 02/23/25 History mg/3 mL) subcutaneous pen injector (Ozempic) cholecalciferol (vitamin D3) 50 50 mcg PO DAILY 12/27/24 Unknown History mcg (2,000 unit) capsule (Vitamin D3) potassium chloride 20 mEq 20 meq PO DAILY 12/27/24 Unknown History tablet,extended release lisinopril 40 mg tablet 40 mg PO DAILY 03/07/25 Unknown History Allergy/AdvReac Type Severity Reaction Status Date / Time Sulfa (Sulfonamide Allergy Mild Anaphylaxis Verified 03/07/25 08:27 Antibiotics) adhesive tape Allergy Unknown Rash Verified 03/07/25 08:27 atorvastatin (From Lipitor) AdvReac Severe Swelling Verified 03/07/25 08:27 Family History Brother Diabetes Asthma Mother CAD (coronary artery disease) Father CVA (cerebral vascular accident) CHF (congestive heart failure) Surgical History Hx of total shoulder replacement History of total right knee replacement History of arthroscopy of right knee History of arthroscopy of left knee History of arthroscopy of shoulder right hip bone graft Status post osteotomy Status post right knee replacement Social History Smoking Status: Former smoker alcohol intake: never substance use type: does not use caffeine: Yes Type: carbonated beverages Number of servings: 10 ROS Constitutional Constitutional: Denies fatigue, fever(s), poor appetite, weight gain or weight loss Gastrointestinal Gastrointestinal: Denies belching, bloating, change in bowel habits, change in stool character, chewing difficulty, coffee ground emesis, constipation, cramping, diarrhea, dyspepsia, dysphagia, early satiety, excessive flatus, fecal incontinence, heartburn, hematemesis, hematochezia, hemorrhoids, loose stools, melena, nausea, odynophagia, rectal bleeding, tenesmus, vomiting or weight changes Physical Exam Const alert, oriented x3, no apparent distress and healthy appearing General Appearance: cooperative GI normal to inspection, nondistended, normoactive bowel sounds, soft to palpation, non-tender and non-distended Percussion: normal to percussion Rectal Exam: deferred Assessment & Plan Assessment/Plan (1) Screening for colon cancer: (2) Anemia: PLAN: Plan This is a 54 yo male pt here today for evaluation for screening colonoscopy. Pt has no hx of colonoscopy. He does have a hx of positive Cologuard about 2 years ago. He has a BMI of 69 and has felt like he is unable to have one done at his size. I advised that I errol talk with Dr. Garrido to see if he would be comfortable performing endoscopy on him. He will be scheduled for this and we can cancel if needed. Pt also with long hx of heartburn on PPI for 20 years. He will also undergo EGD at the same time. -EGD and colonoscopy -f/u after
[2025-03-09] MEDS: Lactated Ringers 1,000 ML 15 ML IV (10:23)
--- NOTE | 2025-03-09 10:34 | PCM.PRE.AN2 ---
ASA Classification* ASA Classification ASA Classification: 3 Assessment & Plan Anesthesia* Anesthesia Assessment Anesthesia Assessment: Discussed sedation and/or anesthesia options, risks, benefits, and alternatives with patient/parents/legal guardian/POA. Questions invited. The patient/parents/legal guardian/POA seems to understand and agrees to proceed with anesthesia plan. Reviewed the physical assessment, medical history, allergy history and patient home medications list prior to surgery/procedure/anesthetic and documented any changes. Performed airway and anesthesia risk assessments. Anesthesia Type Anesthesia Type: MAC History Source History Obtained from:: Patient and Chart Anesthesia Focused Assessment* Temperature: 96.8 F Pulse Rate: 105 Blood Pressure: 134/70 Respiratory Rate: 20 Pulse Ox: 96 Oxygen Delivery Method: Room Air Airway Assessment Mouth opens: >3 cm Mallampati Score: I Teeth Condition: Intact Neck Range of motion (ROM): Full ROM Labs Anesthesia Preop lab: CBC CHEMISTRY COAG Pre-Assessment Diagnosis/Proposed Procedure Planned Operative Procedure(s): COLONOSCOPY, EGD Anesthesia History Anesthesia History - die designer: Anesthesia History - die designer Hx Hospitalization No 03/07/25 08:31 Any Problems With Anesthesia Yes: N&V, AWAKENED DURING 03/07/25 08:31 PREOCEDURE X1 Cholinesterase deficiency No 03/07/25 08:31 You/Your Family Experience No 03/07/25 08:31 fever (hyperthermia) with Relationship Recent Exposure to Contagious No 03/09/25 10:20 Disease Does patient have nerve No 03/07/25 08:31 stimulator Patient instructed to have device shut off --Does patient have Pacemaker No 03/09/25 10:20 or ICD? When Was Last Pacemaker Check QUESTION #4 FULL TEXT: You/Your Family Experience fever (hyperthermia) with Anesthesia Last Oral Intake Last Oral intake: Last Oral Intake NPO since 09:15 03/09/25 10:20 Meds taken in AM with sips of Yes 03/09/25 10:20 water? Meds patient instructed to omeprazole 03/09/25 10:20 take am of surgery PONV PONV - die designer: PONV - die designer Female No 03/07/25 08:31 HX of Motion Sickness No 03/07/25 08:31 HX of N/V After Surgery No 03/07/25 08:31 Non-Smoker Yes 03/07/25 08:31 Duration of Surgery greater No 03/07/25 08:31 than 60 minutes Number of Risk Factors 1 03/07/25 08:31 PONV Score Low Risk 03/07/25 08:31 Height & Weight Height & Weight: Anesthesia: Height & Weight Height 5 ft 10 in 03/09/25 10:20 Weight: 226 kg 03/09/25 10:20 Body Mass Index (BMI) 71.4 03/09/25 10:20 Respiratory Assessment Respiratory Assessment - die designer: Respiratory Tract Infection Hx - die designer Hx Respiratory Tract Infection No 03/07/25 08:31 STOP Sleep Apnea STOP Sleep Apnea - die designer: STOP Sleep Apnea - die designer Hx Hypertension Yes: CONTROLLED ON MED 03/07/25 08:31 Hx Sleep Apnea No 03/07/25 08:31 CPAP BIPAP Do you snore loudly (louder No 03/07/25 08:31 than talking or can be heard Do you often feel tired/ No 03/07/25 08:31 fatigued/ sleepy during daytime? Has anyone observed you stop No 03/07/25 08:31 breathing during sleep? STOP Results Negative 03/07/25 08:31 QUESTION #5 FULL TEXT : Do you snore loudly (louder than talking or can be heard through closed doors)? 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 Specify any problems Hx of Preganancy in last 3 N/A 03/07/25 08:31 Months Nurse Filling Out Transfusion [id number] 03/07/25 08:31 & Questions: Date: 03/07/25 03/07/25 08:31 Time: 08:35 03/07/25 08:31 Patient unable to answer at this time (ie. confused, unrespo /Reproduction History /Reproductive History - die designer: /Reproductive Hx- die designer Hx Now Gestational Age (in weeks): EDC: Hx Hx Para Hx Section SAB Active Medications Active Medications: Current Medications Generic Name Dose Route Start Last Admin Trade Name Namrata PRN Reason Stop Dose Admin Lactated Ringer's 1,000 mls @ 15 mls/hr 03/09/25 10:15 03/09/25 10:23 IV 15 mls/hr .Q48H MUSA Administration PFSH Medical History Shoulder dislocation Depression Anxiety Arthritis Migraine headache Difficulty swallowing Difficulty chewing Gastric reflux Former smoker Shortness of breath on exertion Leg cramps History of edema History of pain when walking Cardiology follow-up encounter History of irregular heartbeat History of Holter monitoring Hx of drainage of abscess Leg edema, right Leg edema, left Right leg swelling Left leg swelling Immobility Osteoarthritis of knee History of migraine headaches Chronic venous insufficiency Hyperlipidemia Diabetes mellitus Hypertension Morbid (severe) obesity due to excess calories COVID-19 Insulin resistance Essential hypertension Hiatal hernia Dysmetabolic syndrome X Elevated liver enzymes GERD (gastroesophageal reflux disease) CKD (chronic kidney disease) stage 2, GFR 60-89 ml/min Sinus tachycardia Scalp lesion Home Medications ?Medication ?Instructions ?Recorded ?Last Taken ?Type multivitamin 2 tab PO QAM 11/12/17 Unknown History aspirin 81 mg tablet,delayed 81 mg PO DAILY #90 tabs 05/01/21 03/03/25 Rx release (Adult Low Dose Aspirin) omeprazole 20 mg capsule,delayed 20 mg PO QDAY 05/01/21 03/09/25 09:15 History release allopurinol 100 mg tablet 100 mg PO BID 10/26/24 Unknown History furosemide 20 mg tablet 20 mg PO QDAY 10/26/24 Unknown History magnesium oxide 500 mg capsule 500 mg PO QDAY 10/26/24 Unknown History semaglutide 0.25 mg or 0.5 mg (2 2 mg subcut QWEEK 10/26/24 02/23/25 History mg/3 mL) subcutaneous pen injector (WebXiom) cholecalciferol (vitamin D3) 50 50 mcg PO DAILY 12/27/24 Unknown History mcg (2,000 unit) capsule (Vitamin D3) potassium chloride 20 mEq 20 meq PO DAILY 12/27/24 Unknown History tablet,extended release lisinopril 40 mg tablet 40 mg PO DAILY 03/07/25 Unknown History Allergy/AdvReac Type Severity Reaction Status Date / Time Sulfa (Sulfonamide Allergy Mild Anaphylaxis Verified 03/09/25 10:18 Antibiotics) adhesive tape Allergy Unknown Rash Verified 03/09/25 10:18 atorvastatin (From Lipitor) AdvReac Severe Swelling Verified 03/09/25 10:18 Family History Brother Diabetes Asthma Mother CAD (coronary artery disease) Father CVA (cerebral vascular accident) CHF (congestive heart failure) Surgical History Hx of total shoulder replacement History of total right knee replacement History of arthroscopy of right knee History of arthroscopy of left knee History of arthroscopy of shoulder right hip bone graft Status post osteotomy Status post right knee replacement Social History Smoking Status: Former smoker alcohol intake: never substance use type: does not use caffeine: Yes Type: carbonated beverages Number of servings: 10 Review of Systems (Anesthesia) ROS Narrative System reviewed and no additional complaints, except as documented.
[2025-03-09] MEDS: Lactated Ringers 500 ML IV (10:54)
--- NOTE | 2025-03-09 11:00 | COLBX_PTH ---
PATIENT: BOBY CHANDLER LOC: EN U#:[id number] AGE/SX: 54/M ROOM: RE03/09/[address]: Dr. Irineo Garrido DO : 1970 BED: DIS: 03/09/2025 SPEC #: [id number] RECD: 03/09/25 11:45 STATUS: REBECA REQ #: [id number] ISAK: 03/09/25 11:[address]: Irineo Garrido DEPT: SURGICAL PATHOLOGY RECD BY: Luis Damon ENTERED: 03/09/25 12:27 SP TYPE: COLON BX [place] DR: Dr. Quin Hurst DO Tissues: A - Esophagus, NOS B - Transverse colon Procedures: Surgery Specimen Level IV HEADER OPERATION: Colonoscopy, polypectomy, EGD biopsy PRE-OP DIAGNOSIS: Screening for colon cancer, anemia TISSUE SUBMITTED: A- Distal esophagus biopsy, B- Transverse colon polyp MICROSCOPIC DIAGNOSIS A. Distal esophagus, biopsy: * Squamocolumnar mucosa negative for goblet cell metaplasia. B. Transverse colon, polyp, biopsy: * Tubular adenoma. MICROSCOPIC DESCRIPTION Slides are reviewed. GROSS DESCRIPTION A. Received in fixative is one container labeled with the patient's name and designated Distal esophagus biopsy. The specimen consists of two irregular fragments of light fernandez soft tissue that measure 0.3 and 0.5 cm. The specimen is totally submitted in one cassette. B. Received in fixative is one container labeled with the patient's name and designated Transverse colon polyp. The specimen consists of one irregular fragment of light fernandez soft tissue that measures 0.4 cm. The specimen is totally submitted in one cassette. CO 03/09/2025 CPT:35625w9
[2025-03-09] MEDS: Midazolam 2 MG/2 ML Syringe IV (11:01)
[2025-03-09] MEDS: Lidocaine 1% (5 ml sdv) 5 ML Vial 10 ML IV (11:01)
[2025-03-09] MEDS: dexMEDEtomidine 200 MCG/2 ML ML 60 MCG IV (11:24)
--- NOTE | 2025-03-09 11:44 | PCM.POST.ANE ---
Anesthesia: Postop Eval I Current Vital Signs Temperature: 98 F Pulse Rate: 95 Blood Pressure: 114/84 Respiratory Rate: 16 Pulse Ox: 94 Oxygen Delivery Method: Room Air Assessment Airway patent: Yes Spontaneous unlabored respirations: Yes Mental status: Awake and Calm nausea: No Vomiting: No Anesthesia Complication: No Fluid Hydration Crystalloid volume administer (ml): 500 Total IV fluid infused: 500 Progress Note Anesthesia document: Postop Eval 1 completed: Yes
--- NOTE | 2025-03-09 11:51 | OP.EGD_ITS ---
Patient Name: Nicolás Carpenter Procedure Date: 03/09/2025 10:55 AM Date of : 1970 Age: 54 Procedure: Upper GI endoscopy Indications: Functional Dyspepsia, Dysphagia, Heartburn Providers: Irineo Garrido DO Referring MD: Quin Hurst Medicines: Monitored Anesthesia Care Patient Profile: This is a 54 year old male. Refer to note in patient chart for documentation of history and physical. Patient has symptoms of chronic abdominal distention, acute epigastric abdominal pain, acute dyspepsia, chronic heartburn and chronic nausea. Complications: No immediate complications. Procedure: Pre-Anesthesia Assessment: - Prior to the procedure, a History and Physical was performed, and patient medications and allergies were reviewed. The patient is competent. The risks and benefits of the procedure and the sedation options and risks were discussed with the patient. All questions were answered and informed consent was obtained. Patient identification and proposed procedure were verified by the physician in the pre-procedure area. Mental Status Examination: alert and oriented. Airway Examination: normal oropharyngeal airway and neck mobility. Respiratory Examination: clear to auscultation. CV Examination: normal. Prophylactic Antibiotics: The patient does not require prophylactic antibiotics. Prior Anticoagulants: The patient has taken no anticoagulant or antiplatelet agents except for NSAID medication. ASA Grade Assessment: II - A patient with mild systemic disease. After reviewing the risks and benefits, the patient was deemed in satisfactory condition to undergo the procedure. The anesthesia plan was to use monitored anesthesia care (MAC). Immediately prior to administration of medications, the patient was re-assessed for adequacy to receive sedatives. The heart rate, respiratory rate, oxygen saturations, blood pressure, adequacy of pulmonary ventilation, and response to care were monitored throughout the procedure. The physical status of the patient was re-assessed after the procedure. After obtaining informed consent, the endoscope was passed under direct vision. Throughout the procedure, the patient's blood pressure, pulse, and oxygen saturations were monitored continuously. The Colonoscope was introduced through the mouth, and advanced to the fourth part of the duodenum. Small bowel enteroscopy was deemed necessary. The upper GI endoscopy was accomplished with ease. The patient tolerated the procedure well. Scope In: 11:07:11 AM Scope Out: 11:14:14 AM Total Procedure Duration Time 0 hours 7 minutes 3 seconds Findings: The Z-line was irregular and was found 40 cm from the incisors. Biopsies for histology were taken with a cold forceps for evaluation of celiac disease. Verification of patient identification for the specimen was done. Estimated blood loss was minimal. Multiple hyperplastic polyps with no bleeding and no stigmata of recent bleeding were found in the gastric fundus and in the gastric body. The examined duodenum was normal. Impression: - Z-line irregular, 40 cm from the incisors. Biopsied. - Multiple gastric polyps. - Normal examined duodenum. Recommendation: - Discharge patient to home. - Resume previous diet. - Continue present medications. Procedure Code(s): --- Professional --- 40712, Small intestinal endoscopy, enteroscopy beyond second portion of duodenum, not including ileum; with biopsy, single or multiple CPT copyright 2021 [employer] [place]. All rights reserved. The codes documented in this report are preliminary and upon narrow fabric calenderer review may be revised to meet current compliance requirements. Irineo Garrido DO 03/09/2025 11:51:08 AM This report has been signed electronically. Number of Addenda: 0 Note Initiated On: 03/09/2025 10:55 AM
--- NOTE | 2025-03-09 11:51 | OP.PROVAT_ITS ---
03/09/2025 Quin Hurst Re : Upper GI endoscopy procedure for Nicolás Carpenter Dear Natali This procedure was performed on February. My impressions and recommendations are as follows: Impressions : - Z-line irregular, 40 cm from the incisors. Biopsied. - Multiple gastric polyps. - Normal examined duodenum. Recommendations : - Discharge patient to home. - Resume previous diet. - Continue present medications. My findings are described in the full procedure note, which is enclosed. If I can be of further assistance, please feel free to contact me at . Sincerely, Irineo Garrido, 03/09/2025 11:51:08 AM This report has been signed electronically.
--- NOTE | 2025-03-09 11:55 | OP.PROVAT_ITS ---
03/09/2025 Quin Hurst Re : Colonoscopy procedure for Nicolás Carpenter Dear Natali This procedure was performed on February. My impressions and recommendations are as follows: Impressions : - Diverticulosis in the recto-sigmoid colon and in the sigmoid colon. - One 7 mm polyp in the transverse colon, removed with a cold biopsy forceps. Resected and retrieved. - Stool in the rectum, in the sigmoid colon and in the cecum. Recommendations : - Discharge patient to home. - Resume previous diet. - Continue present medications. - Await pathology results. - Repeat colonoscopy in 5 years for surveillance. My findings are described in the full procedure note, which is enclosed. If I can be of further assistance, please feel free to contact me at . Sincerely, Irineo Garrido, 03/09/2025 11:54:56 AM This report has been signed electronically.
--- NOTE | 2025-03-09 11:55 | OP.COLON_ITS ---
Patient Name: Nicolás Carpenter Procedure Date: 03/09/2025 11:14 AM Date of : 1970 Age: 54 Procedure: Colonoscopy Indications: Screening for colorectal malignant neoplasm Providers: Irineo Garrido DO Referring MD: Quin Hurst Medicines: Monitored Anesthesia Care Patient Profile: This is a 54 year old male. Refer to note in patient chart for documentation of history and physical. Patient has symptoms of chronic abdominal distention, acute epigastric abdominal pain, acute dyspepsia, chronic heartburn and chronic nausea. Last Colonoscopy: none. The patient's first colonoscopy is today. Complications: No immediate complications. Procedure: Pre-Anesthesia Assessment: - Prior to the procedure, a History and Physical was performed, and patient medications and allergies were reviewed. The patient is competent. The risks and benefits of the procedure and the sedation options and risks were discussed with the patient. All questions were answered and informed consent was obtained. Patient identification and proposed procedure were verified by the physician in the pre-procedure area. Mental Status Examination: alert and oriented. Airway Examination: normal oropharyngeal airway and neck mobility. Respiratory Examination: clear to auscultation. CV Examination: normal. Prophylactic Antibiotics: The patient does not require prophylactic antibiotics. Prior Anticoagulants: The patient has taken no anticoagulant or antiplatelet agents except for NSAID medication. ASA Grade Assessment: II - A patient with mild systemic disease. After reviewing the risks and benefits, the patient was deemed in satisfactory condition to undergo the procedure. The anesthesia plan was to use monitored anesthesia care (MAC). Immediately prior to administration of medications, the patient was re-assessed for adequacy to receive sedatives. The heart rate, respiratory rate, oxygen saturations, blood pressure, adequacy of pulmonary ventilation, and response to care were monitored throughout the procedure. The physical status of the patient was re-assessed after the procedure. After I obtained informed consent, the scope was passed under direct vision. Throughout the procedure, the patient's blood pressure, pulse, and oxygen saturations were monitored continuously. The Colonoscope was introduced through the anus and advanced to the cecum, identified by appendiceal orifice and ileocecal valve. The colonoscopy was performed without difficulty. The patient tolerated the procedure well. The quality of the bowel preparation was adequate. The ileocecal valve, appendiceal orifice, and rectum were photographed. Scope In: 11:17:21 AM Scope Withdrawal Time 0 hours 0 minutes 1 second Scope Out: 11:21:37 AM Total Procedure Duration Time 0 hours 4 minutes 16 seconds Findings: The perianal and digital rectal examinations were normal. Pertinent negatives include normal sphincter tone. A few small-mouthed diverticula were found in the recto-sigmoid colon and sigmoid colon. A 7 mm polyp was found in the transverse colon. The polyp was sessile. The polyp was removed with a cold biopsy forceps. Resection and retrieval were complete. Verification of patient identification for the specimen was done. Estimated blood loss was minimal. Stool was found in the rectum, in the sigmoid colon and in the cecum. Impression: - Diverticulosis in the recto-sigmoid colon and in the sigmoid colon. - One 7 mm polyp in the transverse colon, removed with a cold biopsy forceps. Resected and retrieved. - Stool in the rectum, in the sigmoid colon and in the cecum. Recommendation: - Discharge patient to home. - Resume previous diet. - Continue present medications. - Await pathology results. - Repeat colonoscopy in 5 years for surveillance. Procedure Code(s): --- Professional --- 42276, Colonoscopy, flexible; with biopsy, single or multiple CPT copyright 2021 [employer] [place] [employer]. All rights reserved. The codes documented in this report are preliminary and upon project scheduler review may be revised to meet current compliance requirements. Irineo Garrido DO 03/09/2025 11:54:56 AM This report has been signed electronically. Number of Addenda: 0 Note Initiated On: 03/09/2025 11:14 AM
--- NOTE | 2025-03-09 12:55 | POSTOPAN2_ITS ---
Anesthesia Postop Eval I Sum Postop Eval Completion status Anesthesia document: Postop Eval 1 completed: Yes Anesthesia Postop Eval I Summary Anesthesia Postop Eval I Summary: Anesthesia Postop Eval I: Assessment Summary Airway patent Yes 03/09/25 11:45 [email or web address] [email or web address] Spontaneous unlabored Yes 03/09/25 11:45 MERCURY WASHER.[email or web address] respirations Mental status Awake,Calm 03/09/25 11:45 MERCURY WASHER.GDOTT nausea No 03/09/25 11:45 MERCURY WASHER.GDOTT Vomiting No 03/09/25 11:45 MERCURY WASHER.GDOTT Anesthesia Postop Eval I: Fluid Summary Crystalloid volume administer 500 03/09/25 11:45 MERCURY WASHER.GDOTT (ml) Colloids volume administered ( ml) Blood Product volume administered (ml) Total IV fluid infused 500 03/09/25 11:45 MERCURY WASHER.GDOTT Anesthesia Postop Eval I: Summary Notes Anesthesia Complication No 03/09/25 11:45 MERCURY WASHER.GDOTT Anesthesia Complication Comment: Post-operative progress note Anesthesia: Postop Eval II Evaluation Mental status: Awake and Calm Pain Level: 0 nausea: No Vomiting: No Complications Anesthesia Complication: No
--- NOTE | 2025-03-09 12:55 | PCM.POSTANE2 ---
Anesthesia Postop Eval I Sum Postop Eval Completion status Anesthesia document: Postop Eval 1 completed: Yes Anesthesia Postop Eval I Summary Anesthesia Postop Eval I Summary: Anesthesia Postop Eval I: Assessment Summary Airway patent Yes 03/09/25 11:45 HEATING AND REFRIGERATION INSPECTOR.GDOTT Spontaneous unlabored Yes 03/09/25 11:45 HEATING AND REFRIGERATION INSPECTOR.GDOTT respirations Mental status Awake,Calm 03/09/25 11:45 HEATING AND REFRIGERATION INSPECTOR.GDOTT nausea No 03/09/25 11:45 HEATING AND REFRIGERATION INSPECTOR.GDOTT Vomiting No 03/09/25 11:45 HEATING AND REFRIGERATION INSPECTOR.GDOTT Anesthesia Postop Eval I: Fluid Summary Crystalloid volume administer 500 03/09/25 11:45 HEATING AND REFRIGERATION INSPECTOR.GDOTT (ml) Colloids volume administered ( ml) Blood Product volume administered (ml) Total IV fluid infused 500 03/09/25 11:45 HEATING AND REFRIGERATION INSPECTOR.GDOTT Anesthesia Postop Eval I: Summary Notes Anesthesia Complication No 03/09/25 11:45 HEATING AND REFRIGERATION INSPECTOR.GDOTT Anesthesia Complication Comment: Post-operative progress note Anesthesia: Postop Eval II Evaluation Mental status: Awake and Calm Pain Level: 0 nausea: No Vomiting: No Complications Anesthesia Complication: No
== END 2025-03-09 12:25 | disposition home or self-care (01) ==
LOC: EN 10:06 → AC 10:07
PROVIDERS: Visit Provider Internal Medicine Gastroenterology
PROC: 0DJD8ZZ Inspection of Lower Intestinal Tract, Via Natural or Artificial Opening Endoscopic (ICD-10-PCS; CPT 45378; principal; 2025-03-09 10:55)
DX: Z12.11 Encounter for screening for malignant neoplasm of colon (principal); Z68.44 Body mass index [BMI] 60.0-69.9, adult; E66.01 Morbid (severe) obesity due to excess calories; E11.22 Type 2 diabetes mellitus with diabetic chronic kidney disease; K21.9 Gastro-esophageal reflux disease without esophagitis; K31.7 Polyp of stomach and duodenum; K57.30 Diverticulosis of large intestine without perforation or abscess without bleeding; Z79.85 Long-term (current) use of injectable non-insulin antidiabetic drugs; N18.2 Chronic kidney disease, stage 2 (mild); I12.9 Hypertensive chronic kidney disease with stage 1 through stage 4 chronic kidney disease, or unspecified chronic kidney disease; E78.5 Hyperlipidemia, unspecified; Z79.82 Long term (current) use of aspirin; D64.9 Anemia, unspecified; Z87.891 Personal history of nicotine dependence; Z79.899 Other long term (current) drug therapy; D12.3 Benign neoplasm of transverse colon
CPT/HCPCS: 44361; 45380; 82962; 88305